=== PATIENT | male | born 1975 | race Caucasian/White ===

== ENCOUNTER 2018-06-11 05:58 | Emergency (ER) | payer SELFPAY ==
[2018-06-11] MEDS ORDERED: TETRACAINE HCL 0.5% 2ML OPTH ONE (06:08)
[2018-06-11] MEDS ORDERED: FLUORESCEIN SODIUM 0.6 MG/WRAP ONE (06:08)
--- NOTE | 2018-06-11 06:43 | ER ---
Nurse's Notes [facility] Name: Valerio Hudson Age: 42 yrs Sex: Male : 1975 Arrival Date: 06/11/2018 Time: 05:59 Bed 19 Private MD: Diagnosis: Conjunctivitis Presentation: 06/11 06:09 Presenting complaint: Patient states: My right eye was bothering me before I went to tl2 bed and I woke up around midnight and it was tearing up. This morning it was worse and it's hurts too bad to open it. Redness noted on sclera. Transition of care: patient was not received from another setting of care. Onset of symptoms was June 11, 2018 at 00:00. Risk Assessment: Do you want to hurt yourself or someone else? Patient reports no desire to harm self or others. Initial Sepsis Screen: Does the patient meet any 2 criteria? No. Patient's initial sepsis screen is negative. Does the patient have a suspected source of infection? No. Patient's initial sepsis screen is negative. Care prior to arrival: None. 06:09 Method Of Arrival: Ambulatory tl2 06:09 Acuity: AUBREY 4 tl2 Triage Assessment: 06:11 General: Appears in no apparent distress. uncomfortable, Behavior is calm, cooperative, tl2 appropriate for age. Pain: Complains of pain in right eye Pain does not radiate. Pain currently is 5 out of 10 on a pain scale. EENT: Eyes are tearing on outer aspect of conjuctiva of right eye, iris of right eye and inner aspect of conjuctiva of right eye Sclera/Cornea are reddened in outer aspect of conjuctiva of right eye, iris of right eye and inner aspect of conjuctiva of right eye Denies blurred vision. Neuro: Level of Consciousness is awake, alert, obeys commands, Oriented to person, place, time, situation, Pupils are PERRLA. Cardiovascular: Denies chest pain. Respiratory: Airway is patent Respiratory effort is even, unlabored, Respiratory pattern is regular, symmetrical. GI: No signs and/or symptoms were reported involving the gastrointestinal system. Derm: Skin is pink, warm \T\ dry. Historical: - Allergies: 06:11 No Known Allergies; tl2 - Home Meds: 06:11 None [Active]; tl2 - PMHx: 06:11 Hypertension; pituitary adenoma; tl2 - PSHx: 06:11 brain sx 2011 (pituitary adenoma); Appendectomy; Tonsillectomy; tl2 - Immunization history:: Adult Immunizations up to date. - Social history:: Smoking status: Patient/guardian denies using tobacco. - Ebola Screening: : No symptoms or risks identified at this time. Screenin:15 Abuse screen: Denies threats or abuse. Nutritional screening: No deficits noted. tl2 Tuberculosis screening: No symptoms or risk factors identified. Fall Risk None identified. Assessment: 06:15 General: see triage assessment. tl2 06:50 Reassessment: Patient appears in no apparent distress at this time. Pt verbalized tl2 understanding of discharge instructions, need for follow up and prescription usage. Vital Signs: 06:11 BP 131 / 90; Pulse 81; Resp 18; Temp 98.3(O); Pulse Ox 98% on R/A; Weight 90.72 kg; tl2 Height 6 ft. 0 in. (182.88 cm); Pain 5/10; 06:50 BP 138 / 88; Pulse 78; Resp 18; Pulse Ox 98% on R/A; tl2 06:11 Body Mass Index 27.12 (90.72 kg, 182.88 cm) tl2 Visual Acuity: 06:11 ; Right eye: SC OD CF CC OS 20/20 OU 20/20 tl2 ED Course: 05:59 Patient arrived in ED. ds1 06:10 Triage completed. tl2 06:11 Arm band placed on right wrist. tl2 06:15 Patient has correct armband on for positive identification. Bed in low position. Call tl2 light in reach. Side rails up X 1. 06:31 Elly Pichardo FNP-C [facility]. kb 06:31 Alexis De La Paz MD is Attending Physician. kb 06:50 Kanchan Singer, TERESSA is Primary Nurse. tl2 06:50 No provider procedures requiring assistance completed. Patient did not have IV access tl2 during this emergency room visit. Administered Medications: 06:30 Drug: Tetracaine Drops 0.5 % 1 drops Route: Ophthalmic; Site: right eye; tl2 06:55 Follow up: Response: No adverse reaction; Pain is decreased tl2 06:54 Drug: Fluorescein Strip 1 strip Route: Ophthalmic; Site: right eye; tl2 06:56 Follow up: Response: No adverse reaction tl2 Outcome: 06:42 Discharge ordered by MD. velazco 06:50 Discharged to home ambulatory. tl2 06:50 Condition: stable 06:50 Discharge instructions given to patient, Instructed on discharge instructions, follow up and referral plans. medication usage, Demonstrated understanding of instructions, follow-up care, medications, Prescriptions given X 1. 06:54 Patient left the ED. tl2 Signatures: Elly Pichardo, HEADWAITER/HEADWAITRESS-C HEADWAITER/HEADWAITRESS-Leeann Childress ds1 Kanchan Singer, RN RN tl2
--- NOTE | 2018-06-11 06:43 | EDPHYS ---
Physician Documentation [facility] Name: Valerio Hudson Age: 42 yrs Sex: Male : 1975 Arrival Date: 06/11/2018 Time: 05:59 Bed 19 Private MD: ED Physician Alexis De La Paz HPI: 06/11 06:42 This 42 yrs old Male presents to ER via Ambulatory with complaints of Redness kb of Eye. 06:42 The patient is experiencing redness, tearing, to the right eye, caused by an unknown kb mechanism. Onset: The symptoms/episode began/occurred this morning. Duration: the symptoms are continuous. Aggravated by light, Alleviated by keeping eye closed. Associated signs and symptoms: Pertinent negatives: chills, dizziness, ear ache, fever, headache, runny nose. Patient wears soft contacts. Severity of symptoms: At their worst the symptoms were moderate in the emergency department the symptoms are unchanged. The patient has not experienced similar symptoms in the past. The patient has not recently seen a physician. Pt reports he woke up with redness and tearing to right eye. Pain with light and opening eye. Pt wears contacts normally. Has left contact in. . Historical: - Allergies: 06:11 No Known Allergies; tl2 - Home Meds: 06:11 None [Active]; tl2 - PMHx: 06:11 Hypertension; pituitary adenoma; tl2 - PSHx: 06:11 brain sx 2011 (pituitary adenoma); Appendectomy; Tonsillectomy; tl2 - Immunization history:: Adult Immunizations up to date. - Social history:: Smoking status: Patient/guardian denies using tobacco. - Ebola Screening: : No symptoms or risks identified at this time. ROS: 06:42 Constitutional: Negative for fever, chills, and weight loss, Cardiovascular: Negative kb for chest pain, palpitations, and edema, Respiratory: Negative for shortness of breath, cough, wheezing, and pleuritic chest pain, Abdomen/GI: Negative for abdominal pain, nausea, vomiting, diarrhea, and constipation, MS/Extremity: Negative for injury and deformity, Skin: Negative for injury, rash, and discoloration, Neuro: Negative for headache, weakness, numbness, tingling, and seizure. 06:42 Eyes: Positive for photophobia, redness, tearing. Exam: 06:42 Constitutional: This is a well developed, well nourished patient who is awake, alert, kb and in no acute distress. Head/Face: Normocephalic, atraumatic. Chest/axilla: Normal chest wall appearance and motion. Nontender with no deformity. No lesions are appreciated. Cardiovascular: Regular rate and rhythm with a normal S1 and S2. No gallops, murmurs, or rubs. Normal PMI, no JVD. No pulse deficits. Respiratory: Lungs have equal breath sounds bilaterally, clear to auscultation and percussion. No rales, rhonchi or wheezes noted. No increased work of breathing, no retractions or nasal flaring. Abdomen/GI: Soft, non-tender, with normal bowel sounds. No distension or tympany. No guarding or rebound. No evidence of tenderness throughout. Skin: Warm, dry with normal turgor. Normal color with no rashes, no lesions, and no evidence of cellulitis. MS/ Extremity: Pulses equal, no cyanosis. Neurovascular intact. Full, normal range of motion. Neuro: Awake and alert, GCS 15, oriented to person, place, time, and situation. Cranial nerves II-XII grossly intact. Motor strength 5/5 in all extremities. Sensory grossly intact. Cerebellar exam normal. Normal gait. 06:42 Eyes: Periorbital structures: appear normal, Pupils: equal, round, and reactive to light and accomodation, Extraocular movements: intact throughout, Conjunctiva: injected, in the right eye, tearing noted, in right eye. Vital Signs: 06:11 BP 131 / 90; Pulse 81; Resp 18; Temp 98.3(O); Pulse Ox 98% on R/A; Weight 90.72 kg; tl2 Height 6 ft. 0 in. (182.88 cm); Pain 5/10; 06:50 BP 138 / 88; Pulse 78; Resp 18; Pulse Ox 98% on R/A; tl2 06:11 Body Mass Index 27.12 (90.72 kg, 182.88 cm) tl2 Visual Acuity: 06:11 ; Right eye: SC OD CF CC OS 20/20 OU 20/20 tl2 MDM: 06:31 Patient medically screened. 06:42 Data reviewed: vital signs, nurses notes. Data interpreted: Pulse oximetry: on room air kb is 98 %. Interpretation: normal. 06:45 Counseling: I had a detailed discussion with the patient and/or guardian regarding: the kb historical points, exam findings, and any diagnostic results supporting the discharge/admit diagnosis, the need for outpatient follow up, an opthalmologist, to return to the emergency department if symptoms worsen or persist or if there are any questions or concerns that arise at home. ED course: Educated not to wear contacts until completely resolved, wash hands, follow up with ophthomologist. Administered Medications: 06:30 Drug: Tetracaine Drops 0.5 % 1 drops Route: Ophthalmic; Site: right eye; tl2 06:55 Follow up: Response: No adverse reaction; Pain is decreased tl2 06:54 Drug: Fluorescein Strip 1 strip Route: Ophthalmic; Site: right eye; tl2 06:56 Follow up: Response: No adverse reaction tl2 Disposition: 06/11/18 06:42 Discharged to Home. Impression: Conjunctivitis. - Condition is Stable. - Discharge Instructions: Bacterial Conjunctivitis, [id number]. - Prescriptions for Vigamox 0.5 % Ophthalmic Drops - instill 1 drop by OPHTHALMIC route every 8 hours for 7 days; 5 milliliter. - Work release form, Medication Reconciliation Form, Thank You Letter, Antibiotic Education, Prescription Opioid Use form. - Follow up: Emergency Department; When: As needed; Reason: Worsening of condition. Follow up: Private Physician; When: 2 - 3 days; Reason: Recheck today's complaints, Continuance of care, Re-evaluation by your physician. Addendum: 06/15/2018 10:02 Co-signature as Attending Physician, Joel May MD I agree with the assessment and c pinon plan of care. Signatures: Elly Pichardo, WWE WRESTLER-C WWE WRESTLER-Ckb Joel May MD MD cha Knox, Taylor, RN RN tl2 Corrections: (The following items were deleted from the chart) 06/11 06:54 06:42 06/11/2018 06:42 Discharged to Home. Impression: Conjunctivitis. Condition is tl2 Stable. Forms are Medication Reconciliation Form, Thank You Letter, Antibiotic Education, Prescription Opioid Use. Follow up: Emergency Department; When: As needed; Reason: Worsening of condition. Follow up: Private Physician; When: 2 - 3 days; Reason: Recheck today's complaints, Continuance of care, Re-evaluation by your physician. kb
[2018-06-11] MEDS ORDERED: NEO/POLY/DEX OPTH 3.5 GM TUBE ONE (06:44)
[2018-06-11] MEDS ORDERED: NEO/BAC/POLY/HC OPTH OINT ONE (06:46)
== END 2018-06-11 06:54 | disposition home or self-care (01) ==
LOC: ER 05:58
DX: H10.9 Unspecified conjunctivitis (principal); I10 Essential (primary) hypertension; D35.2 Benign neoplasm of pituitary gland
CPT/HCPCS: 99283